=== PATIENT | female | born 1990 ===

== ENCOUNTER 2021-07-28 16:08 | Observation (INO) | payer MEDICAID ==
[2021-07-28] MEDS ORDERED: PREN-96 PO (18:42)
== END 2021-07-28 19:15 | disposition home or self-care (01) ==
LOC: LDRP 16:08
PROVIDERS: ADMIT Obstetrics & Gynecology; ATTEND Obstetrics & Gynecology
DX: O26.893 Other specified pregnancy related conditions, third trimester (principal); R10.11 Right upper quadrant pain; R22.0 Localized swelling, mass and lump, head; O62.9 Abnormality of forces of labor, unspecified; Z3A.28 28 weeks gestation of pregnancy; V49.40XA Driver injured in collision with unspecified motor vehicles in traffic accident, initial encounter; Y93.89 Activity, other specified; Y92.89 Other specified places as the place of occurrence of the external cause; Y99.8 Other external cause status
CPT/HCPCS: 59025; 76815; 81002; 94760; G0378; G0379